=== PATIENT | male | born 1955 | race Caucasian/White ===

== ENCOUNTER → 2020-08-26 | Outpatient (CLI) | payer OTHER ==
[2020-08-26 15:19] LABS: BASOPHILS % (AUTO) 1 % (0-1); EOSINOPHILS % (AUTO) 2 % (1-7); LYMPHOCYTES % (AUTO) 29 % (22-44); MEAN CORPUSCULAR HEMOGLOBIN 30.8 pg (27.5-34.5); MEAN CORPUSCULAR HGB CONC 34.1 g/dL (33.2-36.2); MEAN PLATELET VOLUME 9.2 fL (7.4-10.4); MONOCYTES % (AUTO) 7 % (2-9); NEUTROPHILS % (AUTO) 61 % (42-75); PLATELET COUNT 177 x10^3/uL (130-400); RED BLOOD COUNT 5.29 x10^6/uL (4.38-5.82)
[2020-08-26 15:28] LABS: MD NO
[2020-08-26 15:32] LABS: ALBUMIN 3.5 g/dL (3.4-5.0); ANION GAP 5 mmol/L (5-15); CHLORIDE 108 mmol/L (98-107)
[2020-08-26 15:36] LABS: ALANINE AMINOTRANSFERASE 23 U/L (12-78); ALKALINE PHOSPHATASE 66 U/L (45-117); BILIRUBIN,TOTAL 0.8 mg/dL (0.2-1.0); CREATININE 1.09 mg/dL (0.7-1.3); TOTAL PROTEIN 7.2 g/dL (6.4-8.2)
== END | disposition home or self-care (01) ==
LOC: STAR 14:26
PROVIDERS: ATTEND Surgery
DX: Z01.818 Encounter for other preprocedural examination (principal); R19.00 Intra-abdominal and pelvic swelling, mass and lump, unspecified site; Z20.822 Contact with and (suspected) exposure to COVID-19
CPT/HCPCS: 36415; 80053; 85025; 93005; U0003

== ENCOUNTER 2020-08-30 09:48 | Inpatient (IN) | payer OTHER ==
[~2020-08-30] VITALS: Ht 167.6 cm; Wt 75.5 kg
[2020-08-30 10:21] VITALS: BP 143/87
[2020-08-30] MEDS ORDERED: CHLORHEXIDINE 15 ML UDC ONE (10:26)
[2020-08-30] MEDS ORDERED: CHLORHEXIDINE 15 ML UDC PO ONE (10:30)
[2020-08-30] MEDS ORDERED: MEPERIDINE/PF 25MG/0.5ML IVPush PRN (10:30)
[2020-08-30] MEDS ORDERED: ACETAMINOPHEN 325 MG TABLET PO PRN (10:30)
[2020-08-30] MEDS ORDERED: OXYcodone 5 MG/5 ML ORAL.SOL UDC PO PRN (10:30)
[2020-08-30] MEDS ORDERED: hydrALAzine 20 MG/ML, 1ML IV PRN (10:30)
[2020-08-30] MEDS ORDERED: HYDROmorphone 1 MG/ML, 1ML INJ IVPush PRN ×2 (10:30→14:30)
[2020-08-30] MEDS ORDERED: PROMETHAZINE 25 MG/ML, 1ML IVPush PRN (10:30)
[2020-08-30] MEDS ORDERED: LABETALOL 5MG/ML, 20ML IV PRN (10:30)
[2020-08-30] MEDS ORDERED: LACTATED RINGERS 1,000 ML IV SCH (10:30)
[2020-08-30] MEDS ORDERED: ONDANSETRON 2MG/ML, 2ML IVPush PRN ×2 (10:30→14:30)
[2020-08-30] MEDS ORDERED: FENTANYL PF 250 MCG/5ML ONE (10:43)
[2020-08-30] MEDS ORDERED: MIDAZOLAM 1 MG/ML, 2ML ONE (10:43)
[2020-08-30] MEDS ORDERED: PROPOFOL 10 MG/ML, 20ML ONE (10:44)
[2020-08-30] MEDS ORDERED: BUPIVACAINE/PF 0.25% ONE ×2 (10:46→12:38)
[2020-08-30] MEDS ORDERED: INDOCYANINE GREEN 25 MG VIAL ONE (11:30)
[2020-08-30] MEDS ORDERED: BUPIVACAINE/PF 0.5% ONE (11:30)
[2020-08-30] MEDS ORDERED: DEXAMETHASONE 4 MG/ML, 1ML ONE (12:27)
[2020-08-30] MEDS ORDERED: EPHEDRINE 50 MG/ML, 1ML ONE (12:38)
[2020-08-30] MEDS ORDERED: ROCURONIUM 10MG/ML,5ML ONE (12:38)
[2020-08-30] MEDS ORDERED: CEFOTETAN 2 GM ONE (12:38)
[2020-08-30] MEDS ORDERED: METOPROLOL 1 MG/ML, 5ML ONE (13:10)
[2020-08-30] MEDS ORDERED: ONDANSETRON 2MG/ML, 2ML ONE ×2 (13:54→15:16)
[2020-08-30] MEDS ORDERED: FENTANYL PF 100 MCG/2ML ONE ×2 (14:29→14:50)
[2020-08-30] MEDS ORDERED: ACETAMINOPHEN 650 MG/20.3 ML UDC ONE (14:29)
[2020-08-30] MEDS ORDERED: HALOPERIDOL 5 MG/ML IVPush PRN (14:30)
[2020-08-30] MEDS ORDERED: DEXAMETHASONE 4 MG/ML, 1ML IVPush PRN (14:30)
[2020-08-30] MEDS ORDERED: TRAZODONE 50MG TABLET PO PRN (14:30)
[2020-08-30] MEDS: ACETAMINOPHEN 100 ML IVPB SCH ×2 (14:30→23:04)
[2020-08-30] MEDS ORDERED: OXYcodone 5 MG/5 ML ORAL.SOL UDC ONE (14:30)
[2020-08-30] MEDS ORDERED: LORazepam 1MG TABLET PO PRN (14:30)
[2020-08-30] MEDS ORDERED: LORazepam 2 MG/ML, 1ML IVPush PRN (14:30)
[2020-08-30] MEDS: FENTANYL PF 100 MCG/2ML IV PRN ×3 (14:30→15:00)
[2020-08-30] MEDS ORDERED: DIPHENHYDRAMINE 25 MG CAPSULE PO PRN (14:30)
[2020-08-30] MEDS ORDERED: DIPHENHYDRAMINE 50 MG/ML, 1ML IVPush PRN (14:30)
[2020-08-30] MEDS ORDERED: CALCIUM CARBONATE 500 MG TAB.CHEW PO PRN (14:30)
[2020-08-30] MEDS: ACETAMINOPHEN 500 MG TABLET PO SCH ×2 (15:46→23:03)
[2020-08-30 15:52] VITALS: BP 121/76
[2020-08-30 20:20] VITALS: BP 146/83
[2020-08-30] MEDS: OXYcodone IR 5MG TABLET PO PRN (20:30)
[2020-08-30] MEDS: SODIUM CHLORIDE FLUSH 10ML SYR IVF SCH (21:00)
[2020-08-31] MEDS: OXYcodone IR 5MG TABLET PO PRN (01:33)
[2020-08-31 01:35] VITALS: BP 146/67
[2020-08-31] MEDS: ACETAMINOPHEN 100 ML IVPB SCH ×2 (02:30→07:12)
[2020-08-31] MEDS: ACETAMINOPHEN 500 MG TABLET PO SCH ×3 (06:11→18:05)
[2020-08-31 06:56] LABS: BASOPHILS % (AUTO) 0 % (0-1); EOSINOPHILS % (AUTO) 0 % (1-7); LYMPHOCYTES % (AUTO) 12 % (22-44); MEAN CORPUSCULAR HEMOGLOBIN 30.7 pg (27.5-34.5); MEAN PLATELET VOLUME 9.5 fL (7.4-10.4); MONOCYTES % (AUTO) 9 % (2-9); NEUTROPHILS % (AUTO) 80 % (42-75); PLATELET COUNT 180 x10^3/uL (130-400); RED BLOOD COUNT 5.23 x10^6/uL (4.38-5.82); RED CELL DISTRIBUTION WIDTH 14.1 % (9.4-14.8)
[2020-08-31 07:06] LABS: MD SCAN
[2020-08-31 07:07] LABS: ALBUMIN 3.6 g/dL (3.4-5.0); ANION GAP 5 mmol/L (5-15); CALCIUM 8.9 mg/dL (8.5-10.1); CHLORIDE 107 mmol/L (98-107)
[2020-08-31 07:35] VITALS: BP 139/78
[2020-08-31] MEDS: ENOXAPARIN 40 MG/0.4 ML SQ SCH (08:17)
[2020-08-31] MEDS: SODIUM CHLORIDE FLUSH 10ML SYR IVF SCH (08:18)
[2020-08-31 14:05] VITALS: BP 125/68
[2020-08-31 19:23] VITALS: BP 117/59
[2020-09-01] MEDS: ACETAMINOPHEN 500 MG TABLET PO SCH ×3 (00:36→12:00)
[2020-09-01 00:41] VITALS: BP 169/82
[2020-09-01] MEDS: SODIUM CHLORIDE FLUSH 10ML SYR IVF SCH ×2 (00:51→08:12)
[2020-09-01 03:27] LABS: ALBUMIN 3.1 g/dL (3.4-5.0); ANION GAP 6 mmol/L (5-15); BASOPHILS % (AUTO) 1 % (0-1); CALCIUM 8.4 mg/dL (8.5-10.1); CHLORIDE 110 mmol/L (98-107); EOSINOPHILS % (AUTO) 1 % (1-7); LYMPHOCYTES % (AUTO) 23 % (22-44); MD NO; MEAN CORPUSCULAR HEMOGLOBIN 30.5 pg (27.5-34.5); MEAN CORPUSCULAR HGB CONC 33.9 g/dL (33.2-36.2); MEAN PLATELET VOLUME 9.4 fL (7.4-10.4); MONOCYTES % (AUTO) 7 % (2-9); NEUTROPHILS % (AUTO) 69 % (42-75); PLATELET COUNT 143 x10^3/uL (130-400); RED BLOOD COUNT 4.61 x10^6/uL (4.38-5.82)
[2020-09-01 08:08] VITALS: BP 146/73
[2020-09-01] MEDS: ENOXAPARIN 40 MG/0.4 ML SQ SCH ×2 (08:12→09:54)
[2020-09-01] MEDS ORDERED: ENOX40SY4 SQ (09:34)
[2020-09-01] MEDS ORDERED: OXYC1TAB14 PO (09:34)
[2020-09-01 10:57] VITALS: BP 162/80
== END 2020-09-01 12:44 | disposition home or self-care (01) | DRG 331 ==
LOC: ORIP 09:48 → 4NE 15:34 → DCLOUNGE 09-01 12:30
PROVIDERS: ADMIT Surgery; ATTEND Surgery
PROC: 0DJD8ZZ Inspection of Lower Intestinal Tract, Via Natural or Artificial Opening Endoscopic (ICD-10-PCS; 2020-08-30)
PROC: 0DTN4ZZ Resection of Sigmoid Colon, Percutaneous Endoscopic Approach (ICD-10-PCS; principal; 2020-08-30 12:00)
PROC: 8E0W4CZ Robotic Assisted Procedure of Trunk Region, Percutaneous Endoscopic Approach (ICD-10-PCS; 2020-08-30 12:00)
DX: C18.7 Malignant neoplasm of sigmoid colon (principal)
CPT/HCPCS: 36415; 80048; 82040; 85025; 86850; 86900; 88305; 88309; G0378; J1100; J1650; J2250; J2405; J2704; J3010; C1769; J7120

== ENCOUNTER 2020-09-20 09:00 | Outpatient (CLI) | payer OTHER ==
[~2020-09-20 09:00] MED LIST: ENOX40SY4 SQ; OXYC1TAB14 PO
[2020-09-20] MEDS ORDERED: COLLOIDAL SILVER PO (09:19)
[2020-09-20] MEDS ORDERED: ROSU10TA2 PO (09:19)
[2020-09-20] MEDS ORDERED: METF500T17 PO (09:19)
[2020-09-20] MEDS ORDERED: ENOX40SY4 SQ (09:19)
== END 2020-09-20 23:59 | disposition home or self-care (01) ==
LOC: STAR 09:00
PROVIDERS: ATTEND Surgery
DX: Z02.9 Encounter for administrative examinations, unspecified (principal)

== ENCOUNTER 2020-10-02 05:53 | Day surgery (SDC) | payer OTHER ==
[~2020-10-02] VITALS: Ht 167.6 cm; Wt 77.0 kg
[~2020-10-02 05:53] MED LIST changes: +COLLOIDAL SILVER PO; +METF500T17 PO; +ROSU10TA2 PO
[2020-10-02 06:40] VITALS: BP 112/75
[2020-10-02] MEDS ORDERED: LACTATED RINGERS 1,000 ML IV SCH (07:00)
[2020-10-02] MEDS ORDERED: CHLORHEXIDINE 15 ML UDC PO ONE (07:00)
[2020-10-02] MEDS ORDERED: LIDOCAINE-MPF 1%, 2ML INFIL ONE (07:00)
[2020-10-02] MEDS ORDERED: BUPIVACAINE/PF 0.5% ONE (07:09)
[2020-10-02] MEDS ORDERED: HEPARIN 1,000 UNITS/ML, 10ML ONE (07:09)
[2020-10-02] MEDS ORDERED: MIDAZOLAM 1 MG/ML, 2ML ONE (07:16)
[2020-10-02] MEDS ORDERED: SUCCINYLCHOLINE 20 MG/ML, 10ML ONE (07:17)
[2020-10-02] MEDS ORDERED: LIDOCAINE-MPF 2% ,5ML ONE (07:17)
[2020-10-02] MEDS ORDERED: FENTANYL PF 100 MCG/2ML ONE (07:17)
[2020-10-02] MEDS ORDERED: ROCURONIUM 10MG/ML,5ML ONE (07:17)
[2020-10-02] MEDS ORDERED: PROPOFOL 10 MG/ML, 20ML ONE (07:17)
[2020-10-02] MEDS ORDERED: ONDANSETRON 2MG/ML, 2ML ONE ×2 (07:26)
[2020-10-02] MEDS ORDERED: CEFAZOLIN 1,000 MG ONE ×2 (07:26)
[2020-10-02] MEDS ORDERED: DEXAMETHASONE 4 MG/ML, 1ML ONE ×2 (07:26)
[2020-10-02] MEDS ORDERED: EPHEDRINE 50 MG/ML, 1ML IVPush PRN (09:00)
[2020-10-02] MEDS ORDERED: PROMETHAZINE 25 MG/ML, 1ML IVPush PRN (09:00)
[2020-10-02] MEDS ORDERED: DIPHENHYDRAMINE 50 MG/ML, 1ML IVPush PRN ×2 (09:00)
[2020-10-02] MEDS ORDERED: HYDROmorphone 1 MG/ML, 1ML INJ IVPush PRN (09:00)
[2020-10-02] MEDS ORDERED: MIDAZOLAM 1 MG/ML, 2ML IV PRN (09:00)
[2020-10-02] MEDS ORDERED: LABETALOL 5MG/ML, 20ML IV PRN (09:00)
[2020-10-02] MEDS ORDERED: hydrALAzine 20 MG/ML, 1ML IV PRN (09:00)
[2020-10-02] MEDS ORDERED: MEPERIDINE/PF 25MG/0.5ML IVPush PRN (09:00)
[2020-10-02] MEDS ORDERED: ALBUTEROL SULFATE 2.5 MG/3 ML NPPB PRN (09:00)
[2020-10-02] MEDS ORDERED: DIAZEPAM 5 MG/ML, 2ML IVPush PRN (09:00)
[2020-10-02] MEDS ORDERED: ONDANSETRON 2MG/ML, 2ML IVPush PRN (09:00)
[2020-10-02] MEDS ORDERED: OXYcodone 5 MG/5 ML ORAL.SOL UDC PO PRN (09:00)
[2020-10-02] MEDS ORDERED: PROMETHAZINE 12.5 MG SUPP PR PRN (09:00)
[2020-10-02] MEDS ORDERED: FENTANYL PF 100 MCG/2ML IV PRN (09:00)
[2020-10-02] MEDS ORDERED: ACETAMINOPHEN 325 MG TABLET PO PRN (09:00)
== END 2020-10-02 10:24 | disposition home or self-care (01) ==
LOC: OUT 05:53
PROVIDERS: ATTEND Surgery
DX: C18.9 Malignant neoplasm of colon, unspecified (principal); Z20.822 Contact with and (suspected) exposure to COVID-19; Z79.899 Other long term (current) drug therapy
CPT/HCPCS: 36561; 77001; 82962; C1788; J0330; J0690; J1100; J1644; J2250; J2405; J2704; J3010; J7120; U0003; U0005

== ENCOUNTER 2020-10-08 05:36 | Day surgery (SDC) | payer OTHER ==
[~2020-10-08] VITALS: Ht 167.6 cm; Wt 76.6 kg
[2020-10-08 06:53] VITALS: BP 127/84
[2020-10-08] MEDS ORDERED: SODIUM CHLORIDE 0.9% 1,000 ML IV SCH (07:00)
[2020-10-08 07:39] LABS: PROTHROMBIN TIME 10.7 Seconds (9.6-11.5)
[2020-10-08] MEDS ORDERED: LIDOCAINE 1%, 10ML ONE (07:51)
[2020-10-08] MEDS ORDERED: NALOXONE 1 MG/ML, 2ML ONE (07:57)
[2020-10-08] MEDS ORDERED: FLUMAZENIL 0.1 MG/1 ML, 5ML ONE (07:57)
[2020-10-08] MEDS ORDERED: MIDAZOLAM 1 MG/ML, 5ML ONE (07:57)
[2020-10-08] MEDS ORDERED: FENTANYL PF 100 MCG/2ML ONE (07:57)
== END 2020-10-08 10:35 | disposition home or self-care (01) ==
LOC: OUT 05:36
PROVIDERS: ATTEND Internal Medicine Hematology & Oncology
DX: K76.89 Other specified diseases of liver (principal); C18.7 Malignant neoplasm of sigmoid colon; Z79.899 Other long term (current) drug therapy; Z98.890 Other specified postprocedural states; Z72.89 Other problems related to lifestyle
CPT/HCPCS: 36415; 47000; 77012; 85610; 88307; 99156; 99157; J2250; J3010; J7030; J2310

== ENCOUNTER → 2020-11-18 | Outpatient (CLI) | payer OTHER | END | disposition home or self-care (01) | LOC: CFH 10:24 | PROVIDERS: ATTEND Internal Medicine Hematology & Oncology | DX: C18.7 Malignant neoplasm of sigmoid colon (principal) | CPT/HCPCS: 76705 ==